=== PATIENT | male | born 1980 | race Hispanic/Latino ===

== ENCOUNTER 2022-12-17 07:42 | Outpatient (CLI) | payer OTHER | END 2022-12-17 07:43 | disposition home or self-care (01) | LOC: TBSIIMAG 07:42 | PROVIDERS: ATTEND Orthopaedic Surgery | DX: S49.91XA Unspecified injury of right shoulder and upper arm, initial encounter (principal); S43.431A Superior glenoid labrum lesion of right shoulder, initial encounter ==